=== PATIENT | male | born 1990 | race Two or more races ===

== ENCOUNTER 2018-10-28 08:42 | Day surgery (SDC) | payer OTHER ==
[2018-10-21 09:23] LABS: HEMATOCRIT 47.2 % (37.9-51.0); HEMOGLOBIN 16.2 g/dL (13.5-17.0); MEAN CORPUSCULAR HEMOGLOBIN 30.7 pg (27.0-33.4); MEAN CORPUSCULAR HGB CONC 34.4 g/dL (32.0-36.0); MEAN CORPUSCULAR VOLUME 89 fl (80-97); PLATELET COUNT 233 10^3/uL (150-450); RED BLOOD COUNT 5.29 10^6/uL (4.35-5.55); RED CELL DISTRIBUTION WIDTH 13.3 % (11.5-14.0); WHITE BLOOD COUNT 6.1 10^3/uL (4.0-10.5)
[2018-10-21 09:28] LABS: APPEARANCE,URINE CLEAR; BILIRUBIN,URINE NEGATIVE (NEGATIVE); COLOR,URINE YELLOW; GLUCOSE, URINE NEGATIVE (NEGATIVE); KETONES,URINE NEGATIVE (NEGATIVE); LEUKOCYTE ESTERASE,URINE NEGATIVE (NEGATIVE); NITRITE,URINE NEGATIVE (NEGATIVE); PROTEIN,URINE NEGATIVE (NEGATIVE); URINE SPECIFIC GRAVITY 1.023; UROBILINOGEN,URINE NEGATIVE mg/dL (<2.0)
--- NOTE | 2018-10-21 09:42 | RADIOLOGY REPORT (SQ) ---
EXAM DESCRIPTION: CHEST PA/LATERAL COMPLETED DATE/TIME: 10/21/2018 9:10 am REASON FOR STUDY: PRE-OP COMPARISON: None. EXAM PARAMETERS: NUMBER OF VIEWS: two views TECHNIQUE: Digital Frontal and Lateral radiographic views of the chest acquired. RADIATION DOSE: NA LIMITATIONS: none FINDINGS: LUNGS AND PLEURA: No opacities, masses or pneumothorax. No pleural effusion. MEDIASTINUM AND HILAR STRUCTURES: No masses or contour abnormalities. HEART AND VASCULAR STRUCTURES: Heart normal size. No evidence for failure. BONES: No acute findings. HARDWARE: None in the chest. OTHER: No other significant finding. IMPRESSION: 1. NO SIGNIFICANT RADIOGRAPHIC FINDING IN THE CHEST. TECHNICAL DOCUMENTATION: JOB ID: [id number] [employer]- All Rights Reserved Reading location - IP/workstation name: [email or web address]
[2018-10-21 09:49] LABS: ANION GAP 8 (5-19); BLOOD UREA NITROGEN 10 mg/dL (7-20); CALCIUM 10.1 mg/dL (8.4-10.2); CARBON DIOXIDE 32 mmol/L (22-30); CHLORIDE 100 mmol/L (98-107); GLUCOSE 94 mg/dL (75-110); POTASSIUM 4.4 mmol/L (3.6-5.0); SODIUM 140.3 mmol/L (137-145)
--- NOTE | 2018-10-21 19:36 | EKG REPORT ---
SEVERITY:- OTHERWISE NORMAL ECG - SINUS ARRHYTHMIA, RATE [id number] : Confirmed by: Ashia Olsen MD 21-Oct-2018 19:35:36
[~2018-10-28 08:42] MED LIST: CEFAZOLIN 2 GM/D5W RTU 2 GM/50 ML RTUPB IV PRN; LACTATED RINGERS 1000 ML IV PRN; LIDOCAINE 0.5% INJ-PF (5 MG/ML) 50 ML SDV SUBCUT PRN
[2018-10-28] MEDS ORDERED: CEFAZOLIN 2 GM/D5W RTU 2 GM/50 ML RTUPB IV ONE (08:53)
[2018-10-28] MEDS ORDERED: BUPIVACAINE HCL 0.5 % INJ/PF 30 ML SDV ONE (09:44)
[2018-10-28] MEDS ORDERED: FENTANYL CITRATE INJ/PF 100 MCG/2 ML AMPUL ONE (10:27)
[2018-10-28] MEDS ORDERED: LIDOCAINE 2% INJ-PF (20 MG/ML) 10 ML AMPUL ONE (10:27)
[2018-10-28] MEDS ORDERED: MIDAZOLAM 2 MG/2 ML INJ ONE (10:27)
[2018-10-28] MEDS ORDERED: DEXAMETHASONE SOD PHOSPHATE INJ 4 MG/1 ML VIAL ONE (10:28)
[2018-10-28] MEDS ORDERED: HYDROMORPHONE HCL INJ/PF 2 MG/ML AMPULE ONE (10:28)
[2018-10-28] MEDS ORDERED: PROPOFOL INJ 200 MG/20 ML VIAL IV ONE (10:28)
[2018-10-28] MEDS ORDERED: ACETAMINOPHEN 1,000 MG/100 ML RTUPB IV ONE (10:28)
[2018-10-28] MEDS ORDERED: ONDANSETRON HCL INJ/PF 4 MG/2 ML SDV ONE (10:28)
[2018-10-28] MEDS ORDERED: FENTANYL CITRATE INJ/PF 100 MCG/2 ML AMPUL IV PRN ×3 (11:16)
[2018-10-28] MEDS ORDERED: DIPHENHYDRAMINE HCL 50 MG/ML VIAL IV PRN (11:16)
[2018-10-28] MEDS ORDERED: PROMETHAZINE HCL INJ 25 MG/1 ML VIAL IV PRN ×2 (11:16)
[2018-10-28] MEDS ORDERED: MEPERIDINE HCL/PF INJ 25 MG/1 ML DISP.SYRIN IV PRN (11:16)
[2018-10-28] MEDS ORDERED: MORPHINE SULFATE 10 MG/ML INJ IV PRN (11:16)
[2018-10-28] MEDS ORDERED: OXYCODONE-ACETAMINOPHEN 5-325 MG TABLET PO PRN ×3 (11:16→14:16)
[2018-10-28] MEDS ORDERED: ONDANSETRON HCL INJ/PF 4 MG/2 ML SDV IV PRN ×2 (11:16→14:16)
[2018-10-28] MEDS ORDERED: METOCLOPRAMIDE HCL INJ/PF 10 MG/2 ML SDV ONE (12:53)
[2018-10-28] MEDS ORDERED: SUCCINYLCHOLINE CHLORIDE INJ 200 MG/10 ML VIAL ONE (12:53)
[2018-10-28] MEDS ORDERED: HYDROMORPHONE HCL INJ/PF 2 MG/ML AMPULE IV PRN (14:16)
--- NOTE | 2018-10-28 14:17 | Discharge Summary ---
Discharge Summary (SDC) - Discharge Final Diagnosis: Right wrist scapholunate disassociation Date of Surgery: 10/28/18 Discharge Date: 10/28/18 Condition: Good Treatment or Instructions: Schedule Follow Up w/ Dr. Koko Newell @ [facility] to be seen in 10-14 days or as scheduled [place]: [place]: [place]: Ice and elevate Keep splint clean/dry/intact. If your fingers become numb please unwrap the Thad wrap but leave the splint in place, if the sensation does not return within 30 minutes please return to the emergency department. May begin finger range of motion attempting to make full fist. Please use ibuprofen (Motrin or Advil) 600-800 mg every 8 hours as needed for pain or fever DO NOT TAKE w/ TORADOL may use once TORADOL complete. You may also use acetaminophen (Tylenol) 1000 mg every 4-6 hours as needed for pain or fever. Please be aware that many medications contain acetaminophen, do not exceed a total of 1000 mg of acetaminophen every 6 hours. If ibuprofen and acetaminophen are not sufficient for your pain you may take the Percocet/[place]. Please be aware that the Percocet/[place] does contain Tylenol. Stool softener of choice when on pain medication. USE OF [id number] IBUPROFEN: Ibuprofen (Advil, Nuprin, Medipren, Motrin IB) is a medication for fever and pain control. In addition, it has anti- inflammatory effects which may be beneficial, especially in the treatment of injuries. It's best to take ibuprofen with food. Persons with ulcer disease or allergy to aspirin should notify their physician of this before taking ibuprofen. Ibuprofen can be given every four to six hours, for a total of four doses daily. Age Pain or fever dose Antiinflammatory dose 6-8 yr 200 mg (1 tab) 200 mg (1 tab) 9-11 yr 200 mg (1 tab) 200-400 mg (1-2 tab) 11-14 yr 200-400 mg (1-2 tab) 400 mg (2 tab) 15-adult 400 mg (2 tab) 600 mg (3 tab) ORAL NARCOTIC MEDICATION: You have been given a prescription for pain control. This medication is a narcotic. It's best taken with food, as nausea can result if taken on an empty stomach. Don't operate machinery or drive within six hours of taking this medication. Do not combine this medicine with alcohol, or with any medication which can cause sedation (such as cold tablets or sleeping pills) unless you get permission from the physician. Narcotics tend to cause constipation. If possible, drink plenty of fluids and eat a diet high in fiber and fruits. Please be aware that prescription narcotics also have the potential for abuse. People become addicted to these medications because of the general sense of wellbeing that they induce. This feeling along with a significant reduction in tension, anxiety, and aggression provides a stimulating seductive quality to these drugs. Once your pain is under control, we encourage you to discard your unused narcotics. Prescriptions: Ketorolac Tromethamine [Toradol 10 mg Tablet] 10 mg PO Q8HP PRN #12 tablet PRN Reason: Oxycodone HCl/Acetaminophen [Percocet 5-325 mg Tablet] 1 tab PO Q6 PRN #25 tab PRN Reason: Referrals: ROXANN WORRELL [Primary Care Provider] - Discharge Diet: As Tolerated Respiratory Treatments at Home: Deep Breathing/Coughing Discharge Activity: No Lifting Over 10 Pounds, No Lifting/Push/Pulling Report the Following to Your Physician Immediately: Fever over 101 Degrees, Unusual Bleeding, Redness, Swelling, Warmth, Increased Soreness
--- NOTE | 2018-10-28 14:25 | Operative Report ---
Operative Report DATE OF SURGERY: 10/28/18 PREOPERATIVE DIAGNOSIS: Scapholunate ligament tear right wrist POSTOPERATIVE DIAGNOSIS: Scapholunate ligament tear EWAS IIIA/B OPERATION: Right wrist arthroscopy with open scapholunate ligament repair with reconstruction utilizing allograft SURGEON: LASHELL ROSEN ANESTHESIA: GA COMPLICATIONS: None ESTIMATED BLOOD LOSS: Minimal PROCEDURE: Indication for above procedure: 27-year-old male who sustained injury to his right wrist. Patient had MRI and CT scan demonstrating possible scapholunate disruption. On examination he had notable instability with Mohan's maneuver had attempted conservative measures including occupational therapy, cast immobilization and injections. At that point decision was made to proceed with operative treatment. Procedure In Detail: Patient was seen and evaluated in the preoperative holding area. The RIGHT upper extremity was initialized and marked. Patient received 2g of Ancef IV for bacterial prophylaxis. Patient was taken back to the operative room where transferred to the operative table and placed under general anesthesia. Once they were adequately anesthetized a nonsterile tourniquet was placed on the upper extremity. A surgical team debriefing was performed ensuring all instrumentation was available, the surgical procedure was discussed with possible concerns reviewed. The upper extremity was prepped with chlorhexidine and alcohol and draped in a sterile fashion. Patient was placed in the Acumed wrist distraction system with 10 pounds of distraction. A timeout was done identifying correct patient, procedure and extremity everyone in attendance agree with this and verbalized no concerns. The extremity was exsanguinated the tourniquet was inflated to 250 mmHg. A 3-4 portal was established. Dry arthroscopy demonstrated proximal membranous portion tear of the scapholunate ligament. Via triangulation 4-5 portal was established. TFCC demonstrated no evidence of tear. There was evidence of synovitis along the prestyloid recess. No evidence of degeneration of the radiocarpal or ulnocarpal joints. Partial synovectomy was performed along the ulnar aspect of the wrist and the scapholunate ligament debrided.Midcarpal radial and midcarpal ulnar portals were established. Inspection of the scapholunate ligament demonstrated up to 2 mm widening of early without evidence of widening greater than 2 mm dorsally. No significant step-off. Unable to drive through the defect with arthroscopy. Thus this was consistent with a EWAS grade III A scapholunate disruption. Longitudinal skin incision was made just ulnar to Haley's tubercle. The third dorsal compartment was then opened. A Z-type incision was made within the ret inaculum and extensor tendons retracted. The PIN nerve was identified without disruption thus decision was made to proceed with nerve sparing capsulotomy was made. Starting along the dorsal ridge of the lunate along the dorsal radial triquetral ligament. Second vertical incision was made from the radial styloid to the scaphoid tubercle. The edges were then connected distally and the flap is retracted proximally maintaining attachments to the radius. The scapholunate interval was then identified with evidence of widening. There was partial disruption of the scapholunate ligament but intact dorsal fibers. 2 joysticks were then placed into the scaphoid and lunate to correct any residual gap and rotational instability. Decision was then made to proceed with reconstruction. The ECRL tendon was then identified and a 3 mm x 10 mm graft harvested through 2 transverse incisions. The tendon graft was then prepared on the back table with 4 oh fiber loop proximally and distally under C-arm fluoroscopy the guide hole within the dorsal aspect of the scaphoid just adjacent to the insertion of the scapholunate ligament was established in the graft, fiber tape were placed into the hole. While maintaining reduction the graft and residual labral tape was placed into a similar 3.5 mm hole within the lunate which was confirmed on C-arm fluoroscopy with K wires. Once complete there was adequate tension of the scapholunate ligament. Fixation was then completed with an additional 3.5 mm drill hole distally at the scaphoid tubercle the remaining FiberWire and graft was then docked into position. At completion there was adequate tension throughout. The remaining 4-0 FiberWire distally was placed to the capsule securing it. C-arm fluoroscopy was obtained which demonstrated closure of the scapholunate ligament Without evidence of rotational malalignment of the scaphoid with normal scapholunate angle on lateral view. Wound was copiously irrigated with normal saline. A longitudinal skin incision was made over the radial styloid blunt dissection was performed any branches of the superficial radial nerve were identified and retracted a drill guide placed. 2 K wires were placed across the scapholunate interval and additional K wire within the scaphoid capitate. The capsule was closed with 2-0 Ethibond suture. The retinacular flap was closed with interrupted 3-0 Vicryl while placing a Harleigh to ensure no undue tension. Tourniquet was deflated. Any peripheral bleeding was controlled with bipolar cautery. Wound was copiously irrigated with normal saline once again. K wires were cut below the skin. Subcutaneous tissues were closed with interrupted 4-0 Monocryl suture. Skin was closed with horizontal mattress running 4-0 nylon in interrupted 4-0 nylon. 30 cc of 0.5% Marcaine without epinephrine injected for postoperative pain control. Patient was placed in a well-padded 4 inch fiberglass splint. Sponge counts, instrument counts, needle counts were correct. Patient was then awoken from anesthesia. Transferred from the operating room table to the operating room stretcher. There was no intraoperative complications patient tolerated procedure well stable to PACU. Postop plan: Patient will follow in the office in 2 weeks we will transition to a short arm cast. At 6 weeks postop we will proceed with removal of the scaphoid capitate pin and begin dart thrower's motion. We will remove remaining K wires at 10-12 weeks postoperatively.
[2018-10-28] MEDS ORDERED: PROMETHAZINE HCL INJ 25 MG/1 ML VIAL ONE (14:26)
[2018-10-28] MEDS ORDERED: OXYCODONE-ACETAMINOPHEN 5-325 MG TABLET ONE (15:26)
--- NOTE | 2018-10-28 15:57 | RADIOLOGY REPORT (SQ) ---
EXAM DESCRIPTION: WRIST RIGHT 2 VIEWS; NO CHG FLUORO COMPLETED DATE/TIME: 10/28/2018 3:01 pm REASON FOR STUDY: R WRIST SCAPHOID REPAIR W/ AUTOGRAFT S63.391D TRAUMATIC RUPTURE OF OTH LIGAMENT O F RIGHT WRIST, S COMPARISON: None. FLUOROSCOPY TIME: 20 seconds 5 images saved to PACS. TECHNIQUE: Intra-operative images acquired during surgical procedure to evaluate progress. NUMBER OF IMAGES: 5 LIMITATIONS: None. FINDINGS: Limited fluoroscopic images were obtained evaluate surgical progress. Images demonstrate postsurgical change from the scaphoid surgical fixation. Please see operative report for detailed de scription of procedure. IMPRESSION: IMAGE(S) OBTAINED DURING PROCEDURE. COMMENT: Quality ID [id number]: Final reports for procedures using fluoroscopy that document radiation exp osure indices, or exposure time and number of fluorographic images (if radiation exposure indices are not available) Please consult full operative report of the attending physician for description of the procedure. TECHNICAL DOCUMENTATION: JOB ID: [id number] [employer]- All Rights Reserved Reading location - IP/workstation name: [email or web address]
--- NOTE | 2018-10-28 15:57 | RADIOLOGY REPORT (SQ) ---
EXAM DESCRIPTION: WRIST RIGHT 2 VIEWS; NO CHG FLUORO COMPLETED DATE/TIME: 10/28/2018 3:01 pm REASON FOR STUDY: R WRIST SCAPHOID REPAIR W/ AUTOGRAFT S63.391D TRAUMATIC RUPTURE OF OTH LIGAMENT O F RIGHT WRIST, S COMPARISON: None. FLUOROSCOPY TIME: 20 seconds 5 images saved to PACS. TECHNIQUE: Intra-operative images acquired during surgical procedure to evaluate progress. NUMBER OF IMAGES: 5 LIMITATIONS: None. FINDINGS: Limited fluoroscopic images were obtained evaluate surgical progress. Images demonstrate postsurgical change from the scaphoid surgical fixation. Please see operative report for detailed de scription of procedure. IMPRESSION: IMAGE(S) OBTAINED DURING PROCEDURE. COMMENT: Quality ID [id number]: Final reports for procedures using fluoroscopy that document radiation exp osure indices, or exposure time and number of fluorographic images (if radiation exposure indices are not available) Please consult full operative report of the attending physician for description of the procedure. TECHNICAL DOCUMENTATION: JOB ID: [id number] [employer]- All Rights Reserved Reading location - IP/workstation name: [email or web address]
[2018-10-28 16:54] VITALS: BP 114/76
== END 2018-10-28 15:20 | disposition home or self-care (01) ==
LOC: OROUT 08:42
PROVIDERS: ATTEND Orthopaedic Surgery
DX: S63.391D Traumatic rupture of other ligament of right wrist, subsequent encounter (principal); X50.9XXD Other and unspecified overexertion or strenuous movements or postures, subsequent encounter; Y93.E6 Activity, residential relocation; Z01.818 Encounter for other preprocedural examination
CPT/HCPCS: 93005; 36415; 85027; 80048; 81001; 71046; 73100; 93010; 29840; 25320; C1713 ×2; J2250; J3490 ×2; J1100; J3010; J2765; J1170; J2550; J0330; J2405; J2704; J0690; J0131; 01830